=== PATIENT | female | born 1955 | race Caucasian/White ===

== ENCOUNTER 2016-10-22 23:26 | Inpatient (IN) | payer OTHER ==
[~2016-10-22] VITALS: Ht 160 cm; Wt 117.2 kg
[2016-10-23 00:15] LABS: EOSINOPHIL (%) 0.9 % (0-5); EOSINOPHIL COUNT 0.1 K/uL (0-0.3); HEMATOCRIT 46.5 % (36.0-46.0); IMMATURE GRANULOCYTE (%) 0.6 % (0.0-0.7); IMMATURE GRANULOCYTE COUNT 0.1 K/uL; INSTRUMENT ABS NEUTROPHIL CT 7.8 K/uL; LYMPHOCYTE COUNT 1.4 K/uL (1.0-2.8); MCH 29.8 PG (29.0-34.0); MCHC 31.8 G/DL (30.0-36.0); MCV 93.6 FL (83-99); MEAN PLAT.VOLUME 11.1 uM^3 (9.5-12.4); MONOCYTE (%) 5.9 % (3-12); MONOCYTE COUNT 0.6 K/uL (0-0.8); NEUTROPHIL COUNT 7.8 K/uL (1.8-6.4); PLATELET COUNT 197 K/uL (156-360); RBC DIS.WIDTH-SD 48.2 % (39-53); RED BLOOD COUNT 4.97 M/uL (3.80-5.20)
[2016-10-23 00:25] LABS: CHLORIDE 103 mEq/L (99-109); POTASSIUM 3.9 mEq/L (3.7-5.4); SODIUM 138 mEq/L (136-147)
[2016-10-23 00:28] LABS: ANION GAP 13 MEQ/L (2-14)
[2016-10-23 00:31] LABS: GFR ESTIMATE (CALCULATED) 54 mL/min/; UREA NITROGEN (BUN) 20 mg/dL (9-23)
[2016-10-23 00:49] LABS: GLUCOSE 444 mg/dL (70-99)
[2016-10-23 00:55] LABS: TROP-I INTERPRETATION NEGATIVE; TROPONIN-I 0.02 ng/mL (0.0-0.30)
[2016-10-23 04:16] LABS: POINT-OF-CARE METER ID UU13113702
[2016-10-23 06:42] LABS: HDL CHOLESTEROL 34 MG/DL (Desirable>=50); LDL CHOLESTEROL 113 mg/dL (Desirable<100); NON-HDL CHOLESTEROL 155 mg/dL (Desirable<160); TOTAL CHOLESTEROL 189 mg/dL (Desirable<200); TRIGLYCERIDES 212 MG/DL (Normal: <150)
[2016-10-23 06:56] LABS: TROP-I INTERPRETATION NEGATIVE; TROPONIN-I 0.15 ng/mL (0.0-0.30)
[2016-10-23 07:26] LABS: Estimated Average Glucose 252 mg/dL (70-123); HEMOGLOBIN A1c (GLYCOHEMOGLOB) 10.4 % HGB (Below 5.7)
[2016-10-23 08:09] LABS: POINT-OF-CARE METER ID UU14174216; POINT-OF-CARE USER ID NUTSLF44
[2016-10-23 11:25] LABS: POINT-OF-CARE USER ID NUTSLF44
[2016-10-23 12:26] VITALS: BP 132/76
[2016-10-23 13:40] LABS: TROP-I INTERPRETATION NEGATIVE; TROPONIN-I 0.14 ng/mL (0.0-0.30)
[2016-10-23 16:23] VITALS: BP 134/56
[2016-10-23 19:42] VITALS: BP 133/69
[2016-10-23 20:05] LABS: POINT-OF-CARE METER ID UU14174216
[2016-10-24 00:02] VITALS: BP 139/72
[2016-10-24 04:27] VITALS: BP 137/70
[2016-10-24 07:26] LABS: HEMATOCRIT 40.9 % (36.0-46.0); MCH 30.4 PG (29.0-34.0); MCHC 32.5 G/DL (30.0-36.0); MCV 93.6 FL (83-99); MEAN PLAT.VOLUME 11.3 uM^3 (9.5-12.4); PLATELET COUNT 205 K/uL (156-360); RBC DIS.WIDTH-CV 14.4 % (11.8-14.6); RBC DIS.WIDTH-SD 49.6 % (39-53); RED BLOOD COUNT 4.37 M/uL (3.80-5.20); WHITE BLOOD COUNT 7.7 K/uL (4.1-10.2)
[2016-10-24 07:37] LABS: PROTHROMBIN TIME 10.5 (9.2-11.2); PTT 35.9 (25-32)
[2016-10-24 07:57] LABS: ALKALINE PHOSPHATASE 75 IU/L (3-129); ANION GAP 12 MEQ/L (2-14); CHLORIDE 101 MEQ/L (99-109); GFR ESTIMATE (CALCULATED) > 59 mL/min/; GLUCOSE 177 mg/dL (70-99); POTASSIUM 3.4 MEQ/L (3.7-5.4); SAMPLE HEMOLYSIS CHECK 0; SAMPLE ICTERIC CHECK 0; SAMPLE LIPEMIA CHECK 0; SODIUM 139 MEQ/L (136-147); TOTAL BILIRUBIN 0.6 MG/DL (0.0-1.0); UREA NITROGEN (BUN) 21 mg/dL (9-23)
[2016-10-24 08:53] VITALS: BP 145/90
[2016-10-24 11:25] LABS: POINT-OF-CARE METER ID UU14174216
[2016-10-24 11:49] VITALS: BP 139/77
[2016-10-24] MEDS ORDERED: GLIPIZIDE5 MG PO (13:42)
[2016-10-24] MEDS ORDERED: LISINOPRIL-HCT1 EACH PO (13:42)
[2016-10-24] MEDS ORDERED: ADVAIR HFA120 INHALA IH (13:42)
[2016-10-24] MEDS ORDERED: ATORVASTATIN CA20 MG PO (13:42)
[2016-10-24] MEDS ORDERED: METFORMIN HCL850 MG PO (13:42)
[2016-10-24] MEDS ORDERED: VENTOLIN HFA18 GM IH (13:42)
[2016-10-24] MEDS ORDERED: LOPRESSOR25 MG PO (13:42)
== END 2016-10-24 15:50 | disposition home or self-care (01) | DRG 315 ==
LOC: EME → EDBD 23:26 → EDOF 10-23 03:16 → 4EAST 10-23 03:16
PROVIDERS: Emergency Medicine; Internal Medicine
DX: I42.8 Other cardiomyopathies (principal); Z68.41 Body mass index [BMI] 40.0-44.9, adult; I48.92 Unspecified atrial flutter; E66.01 Morbid (severe) obesity due to excess calories; I16.1 Hypertensive emergency; J44.9 Chronic obstructive pulmonary disease, unspecified; E11.9 Type 2 diabetes mellitus without complications; F17.200 Nicotine dependence, unspecified, uncomplicated; R60.9 Edema, unspecified; E78.5 Hyperlipidemia, unspecified; R00.0 Tachycardia, unspecified
CPT/HCPCS: 71010; 80048; 80053; 80061; 82948; 83036; 83880; 84443; 84484; 85025; 85027; 85610; 85730; 93005; 93306; 94002; 94640; 94640 76; 94760; 94799; 99202; 99281; 99285; J1650; J1815; J1940; J7050; J7644

== ENCOUNTER 2017-06-29 05:09 | Emergency (ER) | payer SELFPAY ==
[~2017-06-29] VITALS: Ht 160 cm; Wt 113.0 kg
[~2017-06-29 05:09] MED LIST: ADVAIR HFA120 INHALA IH; ATORVASTATIN CA20 MG PO; GLIPIZIDE5 MG PO; LISINOPRIL-HCT1 EACH PO; LOPRESSOR25 MG PO; METFORMIN HCL850 MG PO; VENTOLIN HFA18 GM IH
[2017-06-29 06:25] LABS: CHLORIDE 101 mEq/L (99-109); POTASSIUM 4.9 mEq/L (3.7-5.4); SODIUM 134 mEq/L (136-147)
[2017-06-29 06:26] LABS: GLUCOSE 216 mg/dL (70-99)
[2017-06-29 06:30] LABS: GFR ESTIMATE (CALCULATED) > 59 mL/min/
[2017-06-29 06:31] LABS: UREA NITROGEN (BUN) 20 mg/dL (9-23)
[2017-06-29 06:49] LABS: BASOPHIL (%) 0.4 % (0-1); EOSINOPHIL (%) 1.8 % (0-5); EOSINOPHIL COUNT 0.2 K/uL (0-0.3); HEMATOCRIT 36.7 % (36.0-46.0); HEMOGLOBIN 12.1 G/DL (11.9-15.5); IMMATURE GRANULOCYTE (%) 0.4 % (0.0-0.7); LYMPHOCYTE (%) 12.6 % (15-42); MCH 29.4 PG (29.0-34.0); MCV 89.3 FL (83-99); MONOCYTE (%) 10.6 % (3-12); MONOCYTE COUNT 0.9 K/uL (0-0.8); NEUTROPHIL (%) 74.2 % (45-76); NEUTROPHIL COUNT 6.1 K/uL (1.8-6.4); PLATELET COUNT 249 K/uL (156-360); RBC DIS.WIDTH-CV 13.5 % (11.8-14.6); RBC DIS.WIDTH-SD 43.6 % (39-53); RED BLOOD COUNT 4.11 M/uL (3.80-5.20); WHITE BLOOD COUNT 8.2 K/uL (4.1-10.2)
[2017-06-29] MEDS ORDERED: BACTRIM,SEPT1 TABLET PO (09:40)
[2017-06-29] MEDS ORDERED: KEFLEX500 MG PO (09:40)
[2017-06-29] MEDS ORDERED: DIFLUCAN150 MG PO (09:44)
[2017-06-29 10:00] VITALS: BP 141/82
== END 2017-06-29 10:00 | disposition home or self-care (01) ==
LOC: EME 05:09
PROVIDERS: Emergency Medicine
DX: N61.0 Mastitis without abscess (principal); E11.9 Type 2 diabetes mellitus without complications
CPT/HCPCS: 76642; 80048; 82948; 85025; 85025 91; 87040; 99281; 99285; J7030